=== PATIENT | male | born 1995 | race Two or more races ===

== ENCOUNTER 2016-11-23 06:01 | Emergency (ER) | payer MEDICAID ==
[2016-11-23 06:17] VITALS: BP 118/71
[2016-11-23] MEDS ORDERED: DEXAMETHASONE 10 MG/ML VIAL PO STA (07:20)
[2016-11-23] MEDS ORDERED: LORATADINE 10 MG TABLET PO STA (07:20)
--- NOTE | 2016-11-23 07:23 | ED Physician Documentation ---
History of Present Illness - Stated complaint Stated Complaint: RASH ON BODY - Chief complaint Chief Complaint: Wound - Additonal information Additional information: hx from pt 20 male itchy rash no new foods soaps deterg lotion meds etc no oral swelling not soa no GI sx no hx same Review of Systems Constitutional: denies: Fever Throat: denies: Sore throat, Other (no oral swelling) Respiratory: denies: Dyspnea GI: denies: Abdominal Pain, Nausea, Vomiting, Diarrhea Skin: reports: Rash PD PAST MEDICAL HISTORY - Past Medical History Past Medical History: No - Past Surgical History Past Surgical History: No - Present Medications Home Medications: Ambulatory Orders Medication Instructions Recorded Confirmed Loratadine [Claritin] 10 mg PO DAILY #3 tablet 11/23/16 predniSONE [Deltasone] 40 mg PO DAILY 3 Days 11/23/16 - Allergies Allergies/Adverse Reactions: Allergies Allergy/AdvReac Type Severity Reaction Status Date / Time No Known Drug Allergies Allergy Verified 11/23/16 06:17 - Social History Does the pt smoke?: No Smoking Status: Never smoker Does the pt drink ETOH?: No Does the pt have substance abuse?: No Substance Use and Type: Marijuana - Immunizations Immunizations are current?: No - POLST Patient has POLST: No PD ED PE NORMAL - Vitals Vital signs reviewed: Yes - HEENT HEENT: Other (no oral swelling) - Cardiac Cardiac: RRR - Respiratory Respiratory: No respiratory distress, Clear bilaterally - Derm Derm: Other (diffuse hives) Results - Vitals Vitals: Vital Signs - 24 hr 11/23/16 06:05 Temperature 36.8 C Heart Rate 75 Respiratory 17 Rate Blood Pressure 118/71 O2 Saturation 98 Oxygen O2 Source Room air Departure - Departure Disposition: 01 Home, Self Care Clinical Impression: Urticaria Condition: Good Instructions: ED Urticaria Prescriptions: Loratadine [Claritin] 10 mg PO DAILY #3 tablet predniSONE [Deltasone] 40 mg PO DAILY 3 Days Comments: The rash is hives - an allergic reaction I am not sure what you are allergic to The steroids and antihistamine should relieve the symptoms - take the medications once a day for another three days - your next dose is tomorrow morning If you continue to have episodes of hives, you could see an principal strategist to be tested to find out what you are reacting to Return if worse (mouth or throat swelling, trouble breathing etc) Forms: Activity restrictions
[2016-11-23] MEDS ORDERED: DEXAMETHASONE 10 MG/ML VIAL ONE (07:39)
[2016-11-23] MEDS ORDERED: LORATADINE 10 MG TABLET ONE (07:39)
[2016-11-23] MEDS ORDERED: CHERRY SYRUP 10 ML UDC PO ONE (07:39)
== END 2016-11-23 07:44 | disposition home or self-care (01) ==
LOC: ED 06:01
DX: L50.9 Urticaria, unspecified (principal)
CPT/HCPCS: 99283; A9270

== ENCOUNTER 2017-09-27 08:00 | Outpatient (CLI) | payer MEDICAID ==
[2017-09-28 13:53] LABS: HEPATITIS C ANTIBODY NON-REACTIVE (NON-REACTIVE)
[2017-09-28 14:42] LABS: HIV AG/AB 4TH GEN NON-REACTIVE (NON-REACTIVE)
[2017-09-29 11:52] LABS: HSV 2 IGG TYPE SPECIFIC AB <0.90 index
== END 2017-09-27 08:01 | disposition home or self-care (01) ==
LOC: LAB.F 08:00
PROVIDERS: ATTEND Nurse Practitioner Family
DX: Z72.51 High risk heterosexual behavior (principal)
CPT/HCPCS: 36415; 81599; 86592; 86695; 86696; 86803; 87389; 87491; 87591

== ENCOUNTER 2018-07-31 10:38 | Emergency (ER) | payer MEDICAID ==
--- NOTE | 2018-07-31 11:58 | ED Physician Documentation ---
PD HPI MALE - Stated complaint Stated Complaint: MALE - Chief complaint Chief Complaint: General - History obtained from History obtained from: Patient - History of Present Illness Timing - onset: How many months ago (has had tinea cruris for a year without improvement with OTC topicals. Had some improvement with oral Terbeinfine by PCP, but Rx ran out and insurance would not cover it more. Has the tinea to variable degrees and is worse the past month. Not improved with OTC Lotrimin.) Timing - duration: Months Timing - details: Gradual onset, Waxing and waning Associated symptoms: No: Discharge, Genital sore / lesion, Testiclar pain, Scrotal swelling PD HPI MALE CONTRIB FACTORS: No: Exposed to STD Similar symptoms before: Diagnosis (tinea cruris) Review of Systems Constitutional: denies: Fever, Chills GI: denies: Abdominal Pain, Nausea, Vomiting, Diarrhea Skin: reports: Rash (just crural area) Endocrine: denies: Weight loss, Weight gain PD PAST MEDICAL HISTORY - Past Medical History Endocrine/Autoimmune: None - Past Surgical History Past Surgical History: No - Present Medications Home Medications: Ambulatory Orders Medication Instructions Recorded Confirmed Loratadine [Claritin] 10 mg PO DAILY #3 tablet 11/23/16 predniSONE [Deltasone] 40 mg PO DAILY 3 Days tablet 11/23/16 Betamethasone Valerate 1 applic TP DAILY #15 cream..g. 07/31/18 Fluconazole 150 mg PO ONCE #3 tablet 07/31/18 Terbinafine HCl [Terbinafine] 1 applic TP BID #30 cream..g. 07/31/18 - Allergies Allergies/Adverse Reactions: Allergies Allergy/AdvReac Type Severity Reaction Status Date / Time No Known Drug Allergies Allergy Verified 07/31/18 10:40 - Social History Does the pt smoke?: No Smoking Status: Never smoker Does the pt drink ETOH?: No Does the pt have substance abuse?: No - Immunizations Immunizations are current?: No - POLST Patient has POLST: No PD ED PE NORMAL - Vitals Vital signs reviewed: Yes - General General: Alert and oriented X 3, No acute distress, Well developed/nourished - Abdomen Abdomen: Soft, Non tender - Male Male : Other (normal external genitalia without rash. There is red rash with central clearing and demarcated slightly raised leading edge in crural area bilaterally, to base of scrotum, and to the pubic area. No ulcerations. No blisters nor vesicles.) - Derm Derm: Normal color, Warm and dry Results - Vitals Vitals: Vital Signs - 24 hr 07/31/18 12:29 Temperature 36.7 C Heart Rate 69 Respiratory 16 Rate Blood Pressure 130/70 O2 Saturation 98 Oxygen O2 Source Room air PD MEDICAL DECISION MAKING - ED course Complexity details: considered differential (appearance of rash is c/w tinea cruris. ) Departure - Departure Disposition: 01 Home, Self Care Clinical Impression: Tinea cruris Condition: Stable Record reviewed to determine appropriate education?: Yes Instructions: ED Tinea Cruris General Prescriptions: Betamethasone Valerate 1 applic TP DAILY #15 cream..g. Fluconazole 150 mg PO ONCE #3 tablet Terbinafine HCl [Terbinafine] 1 applic TP BID #30 cream..g. Comments: Regular washing and particularly after working out. Terbinafine topical antifungal twice daily until improved. You can initially use a topical steroid to for the inflammation component (betamethasone). Fluconazole antifungal oral ly developed scalp pain every 3-4 days for a couple of weeks to concern with trigeminal neuralgia treated that way as well. Recheck if not cleared over the next several days to week or so. Discharge Date/Time: 07/31/18 12:31
[2018-07-31] MEDS ORDERED: FLUCONAZOLE 100 MG TABLET PO STA (12:19)
[2018-07-31 12:30] VITALS: BP 130/70
== END 2018-07-31 12:31 | disposition home or self-care (01) ==
LOC: ED 10:38
DX: B35.6 Tinea cruris (principal)
CPT/HCPCS: 99283; A9270

== ENCOUNTER 2018-09-12 21:32 | Emergency (ER) | payer MEDICAID ==
[2018-09-12 21:39] VITALS: BP 178/78
--- NOTE | 2018-09-12 21:49 | ED Physician Documentation ---
PD HPI LOWER EXT INJURY - Stated complaint Stated Complaint: ANKLE INJ - Chief complaint Chief Complaint: Ext Problem - History obtained from History obtained from: Patient - History of Present Illness PD HPI LOW EXT INJURY LOCATION: Right (Took cleats to the medial R ankle playing soccer tonight and has medial ankle pain. no other inj, unable to walk. declines pain meds.) Review of Systems Constitutional: reports: Reviewed and negative Cardiac: reports: Reviewed and negative Respiratory: reports: Reviewed and negative PD PAST MEDICAL HISTORY - Past Medical History Past Medical History: No Endocrine/Autoimmune: None - Past Surgical History Past Surgical History: Yes - Present Medications Home Medications: Ambulatory Orders Medication Instructions Recorded Confirmed Loratadine [Claritin] 10 mg PO DAILY #3 tablet 11/23/16 RX: predniSONE [Deltasone] 40 mg PO DAILY 3 Days tablet 11/23/16 RX: Betamethasone Valerate 1 applic TP DAILY #15 cream..g. 07/31/18 RX: Fluconazole 150 mg PO ONCE #3 tablet 07/31/18 RX: Terbinafine HCl [Terbinafine] 1 applic TP BID #30 cream..g. 07/31/18 - Allergies Allergies/Adverse Reactions: Allergies Allergy/AdvReac Type Severity Reaction Status Date / Time No Known Drug Allergies Allergy Verified 07/31/18 10:40 - Social History Does the pt smoke?: No Smoking Status: Never smoker Does the pt drink ETOH?: Yes Does the pt have substance abuse?: No Substance Use and Type: Marijuana - Immunizations Immunizations are current?: No - POLST Patient has POLST: No PD ED PE NORMAL - Vitals Vital signs reviewed: Yes - General General: Alert and oriented X 3, No acute distress - Extremities Extremities: Other (Tender to palpation with an abrasion to the medial right an kle, no deformity. Full range of motion.) - Neuro Neuro: Alert and oriented X 3, Normal speech Results - Vitals Vitals: Vital Signs - 24 hr 09/12/18 21:35 Temperature 36.8 C Heart Rate 79 Respiratory 20 Rate Blood Pressure 178/78 H O2 Saturation 99 Oxygen O2 Source Room air - Rads (name of study) R ankle 3v Radiology: EMP read contemporaneously (normal) Departure - Departure Disposition: 01 Home, Self Care Clinical Impression: Contusion of right ankle, initial encounter Condition: Good Record reviewed to determine appropriate education?: Yes Instructions: ED Sprain Foot Comments: Ibuprofen as needed for pain, recheck with your doctor in a week if not better, return for new or worsening symptoms. Forms: Activity restrictions Discharge Date/Time: 09/12/18 22:03
--- NOTE | 2018-09-12 22:10 | XRAY Report ---
Reason: ankle inj Procedure Date: 09/12/2018 Accession Number: [id number] / [id number] Procedure: XR - Ankle 3 View RT CPT Code: FULL RESULT: EXAM: RIGHT ANKLE RADIOGRAPHY EXAM DATE: 09/12/2018 09:56 PM. CLINICAL HISTORY: Trauma, pain. COMPARISON: None. TECHNIQUE: 3 views. FINDINGS: Bones: Normal. No fractures or bone lesions. Joints: Normal. No effusion. No subluxations. The ankle mortise is normally aligned. Soft Tissues: Unremarkable. IMPRESSION: Normal ankle radiography. RADIA
== END 2018-09-12 22:03 | disposition home or self-care (01) ==
LOC: ED 21:32
DX: S90.01XA Contusion of right ankle, initial encounter (principal); S90.511A Abrasion, right ankle, initial encounter; W21.31XA Struck by shoe cleats, initial encounter; Y93.66 Activity, soccer; Y92.322 Soccer field as the place of occurrence of the external cause
CPT/HCPCS: 99282; 99283

== ENCOUNTER 2018-12-11 11:27 | Emergency (ER) | payer MEDICAID ==
[2018-12-11] MEDS ORDERED: CHERRY SYRUP 10 ML UDC PO ONE (11:56)
[2018-12-11] MEDS ORDERED: DEXAMETHASONE 10 MG/ML VIAL PO STA (11:56)
--- NOTE | 2018-12-11 12:00 | ED Physician Documentation ---
PD HPI SKIN - Stated complaint Stated Complaint: RASH - Chief complaint Chief Complaint: Wound - History obtained from History obtained from: Patient, Family - History of Present Illness Timing - onset: How many days ago (3) Timing - duration: Days (3) Timing - details: Gradual onset, Still present Location: Bodywide Quality / character: Itchy, Burning Associated symptoms: No: Fever, Myalgias, Joint pain, Headache, Facial swelling, Dyspnea, Abd pain, N/V/D, Urinary sx Contributing factors: Recent illness (viral illness last week) Similar symptoms before: Has not had sx before Recently seen: Not recently seen - Additional information Additional information: Previously well 22-year-old male has developed a rash first on his right hand over his fingers with very bumpy rash that has now spread to the anterior chest into the back. He has a son his extremities as well. He does not have a known exposure to a specific topical etiology. He has had a recent viral infection. Symptoms have resolved he has no other specific symptoms now. Review of Systems Constitutional: denies: Fever, Chills, Myalgias Eyes: denies: Decreased vision Ears: denies: Ear pain Nose: denies: Rhinorrhea / runny nose, Congestion Throat: denies: Sore throat Cardiac: denies: Chest pain / pressure, Palpitations Respiratory: denies: Dyspnea, Cough GI: denies: Abdominal Pain, Nausea, Vomiting : denies: Dysuria, Frequency Skin: reports: Rash. denies: Lesions, Abrasion (s), Laceration (s), Bite / sting Musculoskeletal: denies: Neck pain, Back pain, Extremity pain PD PAST MEDICAL HISTORY - Past Medical History Endocrine/Autoimmune: None - Past Surgical History Past Surgical History: Yes - Present Medications Home Medications: Ambulatory Orders Medication Instructions Recorded Confirmed Loratadine [Claritin] 10 mg PO DAILY #3 tablet 11/23/16 predniSONE [Deltasone] 40 mg PO DAILY 3 Days tablet 11/23/16 Betamethasone Valerate 1 applic TP DAILY #15 cream..g. 07/31/18 Fluconazole 150 mg PO ONCE #3 tablet 07/31/18 Terbinafine HCl [Terbinafine] 1 applic TP BID #30 cream..g. 07/31/18 hydrOXYzine pamoate [Hydroxyzine 25 - 50 mg PO Q6HR PRN #30 capsule 12/11/18 Pamoate] - Allergies Allergies/Adverse Reactions: Allergies Allergy/AdvReac Type Severity Reaction Status Date / Time No Known Drug Allergies Allergy Verified 12/11/18 11:32 - Social History Does the pt smoke?: No Smoking Status: Never smoker Does the pt drink ETOH?: Yes Does the pt have substance abuse?: No - Immunizations Immunizations are current?: No - POLST Patient has POLST: No PD ED PE NORMAL - Vitals Vital signs reviewed: Yes (normal ) - General General: Alert and oriented X 3, No acute distress, Well developed/nourished - HEENT HEENT: Atraumatic, PERRL, EOMI, Ears normal, Moist mucous membranes, Pharynx benign, Dentition benign - Neck Neck: Supple, no meningeal sign, No bony TTP - Cardiac Cardiac: RRR, No murmur - Respiratory Respiratory: No respiratory distress, Clear bilaterally - Abdomen Abdomen: Soft, Non tender - Back Back: No CVA TTP, No spinal TTP - Derm Derm: Normal color, Warm and dry, Other (There is a fine reticular rash over the back and chest consitent in appearance with pityriasis rosea. There is the herald patch over the right index finger dorsal surface. 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, No motor deficit, No sensory deficit, Normal speech Eye Opening: Spontaneous Motor: Obeys Commands Verbal: Oriented GCS Score: 15 - Psych Psych: Normal mood, Normal affect Results - Vitals Vitals: Vital Signs - 24 hr 12/11/18 11:30 Temperature 36.8 C Heart Rate 76 Respiratory 19 Rate Blood Pressure 109/82 H O2 Saturation 100 Oxygen O2 Source Room air PD MEDICAL DECISION MAKING - ED course Complexity details: considered differential, d/w patient, d/w family ED course: 22-year-old with a very nonspecific appearing rash that is fine and it is excoriated has a course consistent with the possibility of pityriasis rosea. He does have a herald patch that started on his right index and he has now generalized rash. It has spared his face. He is given and dose of decadron and we will put him on some hydroxizine for itching. Departure - Departure Disposition: 01 Home, Self Care Clinical Impression: Pityriasis rosea-like skin eruption Condition: Stable Instructions: ED Pityriasis Rosea Follow-Up: [facility] [Provider Group] Prescriptions: hydrOXYzine pamoate [Hydroxyzine Pamoate] 25 - 50 mg PO Q6HR PRN #30 capsule PRN Reason: Itching
[2018-12-11 12:20] VITALS: BP 110/79
== END 2018-12-11 12:19 | disposition home or self-care (01) ==
LOC: ED 11:27
DX: R21 Rash and other nonspecific skin eruption (principal)
CPT/HCPCS: 99282; 99284; A9270

== ENCOUNTER 2019-12-21 16:35 | Emergency (ER) | payer MEDICAID ==
[2019-12-21] MEDS ORDERED: IBUPROFEN 800 MG TABLET PO STA (16:45)
[2019-12-21] MEDS ORDERED: TETANUS/DIPHTHERIA/PERTUSSIS 0.5 ML SYRINGE IM ONE (16:45)
--- NOTE | 2019-12-21 17:01 | ED Physician Documentation ---
History of Present Illness - Stated complaint Stated Complaint: RT HAND INJ - Chief complaint Chief Complaint: Ext Problem - History obtained from History obtained from: Patient - History of Present Illness Timing: Today, How many hours ago (1) Pain level max: 8 Pain level now: 8 - Additonal information Additional information: 23-year-old right-handed male states that he was playing soccer today when he dove for a ball and another player stepped on his right hand with their cleats. Now has pain, swelling and bruising. Worse with movement, better with rest. Has not taken anything for this. Unknown last tetanus shot. Review of Systems Constitutional: denies: Fever Musculoskeletal: denies: Neck pain, Back pain Neurologic: denies: Headache, Head injury, LOC PD PAST MEDICAL HISTORY - Past Medical History Endocrine/Autoimmune: None - Past Surgical History Past Surgical History: Yes - Present Medications Home Medications: Ambulatory Orders Medication Instructions Recorded Confirmed Loratadine [Claritin] 10 mg PO DAILY #3 tablet 11/23/16 predniSONE [Deltasone] 40 mg PO DAILY 3 Days tablet 11/23/16 Betamethasone Valerate 1 applic TP DAILY #15 cream..g. 07/31/18 Fluconazole 150 mg PO ONCE #3 tablet 07/31/18 Terbinafine HCl [Terbinafine] 1 applic TP BID #30 cream..g. 07/31/18 hydrOXYzine pamoate [Hydroxyzine 25 - 50 mg PO Q6HR PRN #30 capsule 12/11/18 Pamoate] Ibuprofen [Motrin] 800 mg PO Q8H PRN #30 tablet 12/21/19 - Allergies Allergies/Adverse Reactions: Allergies Allergy/AdvReac Type Severity Reaction Status Date / Time No Known Drug Allergies Allergy Verified 12/21/19 16:42 - Social History Does the pt smoke?: No Smoking Status: Never smoker Does the pt drink ETOH?: Yes Does the pt have substance abuse?: No - Immunizations Immunizations are current?: No - POLST Patient has POLST: No PD ED PE NORMAL - Vitals Vital signs reviewed: Yes - General General: Alert and oriented X 3, No acute distress - HEENT HEENT: Moist mucous membranes - Neck Neck: Supple, no meningeal sign - Derm Derm: Warm and dry - Extremities Extremities: Other (R hand - Tender to palpation over the dorsum of the right hand. Swelling and bruising to the third and fourth metacarpals. Abrasions to the back of the hand as well. No tenderness over the wrist or scaphoid. Neurovascular intact) - Neuro Neuro: Alert and oriented X 3 Results - Vitals Vitals: Vital Signs - 24 hr 12/21/19 12/21/19 12/21/19 16:40 17:26 17:41 Temperature 37 C 36.8 C 37.1 C Heart Rate 71 70 66 Respiratory 18 16 16 Rate Blood Pressure 127/74 121/72 112/77 O2 Saturation 98 98 99 Oxygen O2 Source Room air - Rads (name of study) Right hand x-ray Radiology: Prelim report reviewed, EMP read contemporaneously, See rad report (No acute abnormality) PD MEDICAL DECISION MAKING - ED course Complexity details: reviewed results, considered differential, d/w patient ED course: No acute findings on x-ray. Appears to be a hand contusion with abrasions. He refused a tetanus shot. Wounds were cleansed and bandaged. We will have him follow-up with his doctor for wound check later in the week. Patient counseled regarding signs and symptoms for which I believe and urgent re-evaluation would be necessary. Patient with good understanding of and agreement to plan and is comfortable going home at this time This document was made in part using voice recognition software. While efforts are made to proofread this document, sound alike and grammatical errors may occur. Departure - Departure Disposition: 01 Home, Self Care Clinical Impression: Abrasion Contusion of hand Qualifiers: Encounter type: initial encounter Laterality: right Qualified Code(s): S60.221A - Contusion of right hand, initial encounter Condition: Good Instructions: ED Abrasion, ED Contusion Hand Follow-Up: your,doctor in 1 week [Other] Prescriptions: Ibuprofen [Motrin] 800 mg PO Q8H PRN #30 tablet PRN Reason: PAIN &/OR FEVER Comments: Return if you worsen. Keep the wounds clean. Return if you notice redness, swelling, or drainage from the wound. Discharge Date/Time: 12/21/19 17:41
--- NOTE | 2019-12-21 17:09 | XRAY Report ---
PROCEDURE: Hand 3 View RT INDICATIONS: R hand pain, stepped on playing soccer TECHNIQUE: 3 views of the hand(s) acquired. COMPARISON: None FINDINGS: Bones: No fractures or dislocations. No suspicious bony lesions. Soft tissues: No suspicious soft tissue calcifications. IMPRESSION: Right hand without acute radiographic abnormalities. If there is persistent clinical concern for a radiographically occult fracture, recommend immobilizat ion and repeat imaging in 10 to 14 days. Reviewed by: Raymon De MD on 12/21/2019 5:08 PM PDT Approved by: Raymon De MD on 12/21/2019 5:08 PM PDT Station ID: [id number]
[2019-12-21] MEDS ORDERED: BACITRACIN ZINC OINT 1 PACKET TOP STA (17:14)
[2019-12-21 17:42] VITALS: BP 112/77
== END 2019-12-21 17:41 | disposition home or self-care (01) ==
LOC: ED 16:35
DX: S60.511A Abrasion of right hand, initial encounter (principal); S60.221A Contusion of right hand, initial encounter; W50.0XXA Accidental hit or strike by another person, initial encounter; Y93.66 Activity, soccer
CPT/HCPCS: 73130; 90715; 99283; 99284; A9270

== ENCOUNTER 2020-09-24 10:51 | Emergency (ER) | payer MEDICAID ==
[2020-09-24 11:02] VITALS: BP 124/82
--- NOTE | 2020-09-24 11:19 | ED Physician Documentation ---
History of Present Illness - Stated complaint Stated Complaint: PX IN EARS - Chief complaint Chief Complaint: Heent - History obtained from History obtained from: Patient - Additonal information Additional information: 24-year-old man, previously healthy presents with bilateral ear pain worse on the left side, starting last night gradual in onset, constant, with associated muffled hearing. Patient states he went swimming a week ago and has experienced some ear drainage since last night to bilateral ears. Denies fevers, nasal congestion or sinus congestion, other symptoms. Review of Systems Constitutional: denies: Fever, Chills Ears: reports: Ear pain Musculoskeletal: denies: Neck pain PD PAST MEDICAL HISTORY - Past Medical History Endocrine/Autoimmune: None - Past Surgical History Past Surgical History: Yes - Present Medications Home Medications: Ambulatory Orders Medication Instructions Recorded Confirmed Loratadine [Claritin] 10 mg PO DAILY #3 tablet 11/23/16 predniSONE [Deltasone] 40 mg PO DAILY 3 Days tablet 11/23/16 Betamethasone Valerate 1 applic TP DAILY #15 cream..g. 07/31/18 Fluconazole 150 mg PO ONCE #3 tablet 07/31/18 Terbinafine HCl [Terbinafine] 1 applic TP BID #30 cream..g. 07/31/18 hydrOXYzine pamoate [Hydroxyzine 25 - 50 mg PO Q6HR PRN #30 capsule 12/11/18 Pamoate] Ibuprofen [Motrin] 800 mg PO Q8H PRN #30 tablet 12/21/19 Ciproflox/Dexameth Otic Drops 4 drops OT BID #7.5 ml 09/24/20 [Ciprodex Otic Drops] - Allergies Allergies/Adverse Reactions: Allergies Allergy/AdvReac Type Severity Reaction Status Date / Time No Known Drug Allergies Allergy Verified 09/24/20 11:02 - Social History Does the pt smoke?: No Smoking Status: Never smoker Does the pt drink ETOH?: Yes Does the pt have substance abuse?: No - Immunizations Immunizations are current?: No - POLST Patient has POLST: No PD ED PE NORMAL - Vitals Vital signs reviewed: Yes - General General: Alert and oriented X 3, No acute distress, Well developed/nourished - HEENT HEENT: Atraumatic, PERRL, EOMI, Other (Bilateral external otitis. TMs clear bilaterally) - Neck Neck: Supple, no meningeal sign - Neuro Neuro: Alert and oriented X 3 - Psych Psych: Normal mood, Normal affect Results - Vitals Vitals: Vital Signs - 24 hr 09/24/20 10:56 Temperature 36.6 C Heart Rate 82 Respiratory 15 Rate Blood Pressure 124/82 H O2 Saturation 100 Oxygen O2 Source Room air PD MEDICAL DECISION MAKING - ED course ED course: 24-year-old man presents with uncomplicated otitis externa. Patient given about prevention of future swimmer's ear by putting [id number] alcohol in the ears after swimming. Return precautions given. Patient will take antibiotic eardrops and follow-up with his primary doctor. Departure - Departure Disposition: 01 Home, Self Care Clinical Impression: External otitis Condition: Good Instructions: ED Otitis Externa Prescriptions: Ciproflox/Dexameth Otic Drops [Ciprodex Otic Drops] 4 drops OT BID #7.5 ml Comments: You were seen in the emergency department for an external ear infection. Take the antibiotic eardrops as prescribed and return to the emergency department if you have any new or worsening symptoms or other concerns. Follow-up with your primary doctor.
== END 2020-09-24 11:36 | disposition home or self-care (01) ==
LOC: ED 10:51
DX: H60.93 Unspecified otitis externa, bilateral (principal)
CPT/HCPCS: 99282; 99284

== ENCOUNTER 2021-05-18 09:52 | Emergency (ER) | payer MEDICAID ==
[2021-05-18 10:00] VITALS: BP 127/48
--- NOTE | 2021-05-18 10:19 | ED Physician Documentation ---
PD HPI BACK PAIN - Stated complaint Stated Complaint: BACK PX - Chief complaint Chief Complaint: Back Pain - History obtained from History obtained from: Patient - History of Present Illness Timing - onset: How many days ago (2-3) Timing - duration: Days (2-3) Timing - details: Abrupt onset (working out 2 days ago and doing arm curls standing, with onset of some pain left lower back that has worsened with stiffness and spasms since.), Still present Location: Lower, Left, Other (the pain radiates up back and to buttock area without radiation down leg nor to abdomen.) Quality: Pain, Spasm Associated symptoms: No: Fever, Weakness, Numbness Improves with: Rest. No: Meds (tried Ibuprofen without improvement) Worsened by: Movement, Twisting, Palpation Contributing factors: Lifting, Twisting. No: Trauma (not any impact/fall/velocity of injury.) Similar symptoms before: Has not had sx before Recently seen: Not recently seen Review of Systems Constitutional: denies: Fever, Chills Nose: denies: Rhinorrhea / runny nose, Congestion Throat: denies: Sore throat Respiratory: denies: Cough GI: denies: Abdominal Pain, Nausea, Vomiting : denies: Dysuria, Frequency, Incontinent, Hematuria Skin: denies: Rash Neurologic: denies: Focal weakness, Numbness PD PAST MEDICAL HISTORY - Past Medical History Cardiovascular: None Respiratory: None Neuro: None Endocrine/Autoimmune: None GI: None : None HEENT: None Psych: None Musculoskeletal: None - Past Surgical History Past Surgical History: Yes - Present Medications Home Medications: Ambulatory Orders Medication Instructions Recorded Confirmed Loratadine [Claritin] 10 mg PO DAILY #3 tablet 11/23/16 predniSONE [Deltasone] 40 mg PO DAILY 3 Days tablet 11/23/16 Betamethasone Valerate 1 applic TP DAILY #15 cream..g. 07/31/18 Fluconazole 150 mg PO ONCE #3 tablet 07/31/18 Terbinafine HCl [Terbinafine] 1 applic TP BID #30 cream..g. 07/31/18 hydrOXYzine pamoate [Hydroxyzine 25 - 50 mg PO Q6HR PRN #30 capsule 12/11/18 Pamoate] Ibuprofen [Motrin] 800 mg PO Q8H PRN #30 tablet 12/21/19 Ciproflox/Dexameth Otic Drops 4 drops OT BID #7.5 ml 09/24/20 [Ciprodex Otic Drops] Oxycodone HCl/Acetaminophen 1 each PO Q6H PRN #18 tablet 05/18/21 [Percocet 5-325 mg Tablet] methocarbamoL [Robaxin] 500 mg PO Q6H PRN #30 tablet 05/18/21 - Allergies Allergies/Adverse Reactions: Allergies Allergy/AdvReac Type Severity Reaction Status Date / Time No Known Drug Allergies Allergy Verified 05/18/21 10:00 - Social History Does the pt smoke?: No Smoking Status: Never smoker Does the pt drink ETOH?: Yes Does the pt have substance abuse?: No - Immunizations Immunizations are current?: No - POLST Patient has POLST: No PD ED PE NORMAL - Vitals Vital signs reviewed: Yes - General General: Alert and oriented X 3, Well developed/nourished, Other (appears in pain with low back movement.Guarding ROM. ) - Abdomen Abdomen: Soft, Non tender - Back Back: No CVA TTP, No spinal TTP (has tender left paralumbar and lateral muscles. No point triggers per se. ) - Derm Derm: Normal color, Warm and dry - Extremities Extremities: Normal ROM s pain, No edema, No calf tenderness / cord - Neuro Neuro: Alert and oriented X 3, No motor deficit, No sensory deficit, Normal spe ech, Other (normal patellar reflexes. ) Eye Opening: Spontaneous Motor: Obeys Commands Verbal: Oriented GCS Score: 15 Results - Vitals Vitals: Oxygen O2 Source Room air PD MEDICAL DECISION MAKING - ED course Complexity details: considered differential (low back pain with exercise, no injury of velocity, and no red flags. ), d/w patient Departure - Departure Disposition: Home, Self Care Clinical Impression: Low back strain Qualifiers: Encounter type: initial encounter Qualified Code(s): S39.012A - Strain of muscle, fascia and tendon of lower back, initial encounter Condition: Stable Record reviewed to determine appropriate education?: Yes Instructions: ED Sprain Strain Lumbar Prescriptions: Oxycodone HCl/Acetaminophen [Percocet 5-325 mg Tablet] 1 each PO Q6H PRN #18 tablet PRN Reason: pain methocarbamoL [Robaxin] 500 mg PO Q6H PRN #30 tablet PRN Reason: Spasms Comments: New with the ibuprofen 600 mg 3 times a day for the next several days to week. To that add Tylenol every 4-6 hours if needed for pain or oxycodone/acetaminophen if needed for worse pain in the short-term. You could also add methocarbamol muscle relaxant to help with stiffness and spasms. You can try heat or ice to the area and see which works more effectively if at all. Typically he is best for spasms and stiffness and ice works for inflammation. It is hard to tell on an individual which is the major component so try them both. Gentle stretching massage and chiropractic are all good options as well. You do want to keep the muscles limber and less spasming so some gentle stretching and activity is good. Avoid heavy workouts until better. Recheck if not improved well over the next week or so. I transmitted your prescriptions to [facility] in [place]. I am prescribing a short course of narcotic pain medication for you. These are potentially dangerous and addictive medications that should be used carefully. These medications may constipate you. Take an [id number] stool softener such as docusate twice daily with plenty of water while taking these medications. If you go 24 hours without a bowel movement, take [id number] MiraLAX, per package instructions. Do not drink or drive while taking these medications. If you received narcotic or sedating medications while in the emergency department do not drive for 24 hours. Store this medication in a safe, secure place and out of reach of children. It is a violation of federal law to give or sell this medication to another person or to use in a manner other than prescribed. The ED will not refill narcotic prescriptions, including prescriptions lost or stolen. You can dispose of unwanted medications at the [facility] office or at several pharmacies such as [facility]. Discharge Date/Time: 05/18/21 10:43
[2021-05-18] MEDS ORDERED: oxyCODONE 5 MG TABLET PO STA (10:31)
[2021-05-18] MEDS ORDERED: methocarbamoL 500 MG TABLET PO STA (10:31)
[2021-05-18] MEDS ORDERED: DEXAMETHASONE 10 MG/ML VIAL PO STA (10:31)
[2021-05-18] MEDS ORDERED: ACETAMINOPHEN 325 MG TABLET PO STA (10:31)
[2021-05-18] MEDS ORDERED: CHERRY SYRUP 10 ML UDC PO ONE (10:31)
== END 2021-05-18 10:43 | disposition home or self-care (01) ==
LOC: ED 09:52
DX: S39.012A Strain of muscle, fascia and tendon of lower back, initial encounter (principal); X50.9XXA Other and unspecified overexertion or strenuous movements or postures, initial encounter; Y93.B9 Activity, other involving muscle strengthening exercises
CPT/HCPCS: 99282; 99283; A9270